=== PATIENT | male | born 1995 | race Caucasian/White ===

== ENCOUNTER 2017-05-05 09:23 | Emergency (ER) | payer SELFPAY ==
[2017-05-05 09:29] VITALS: BP 128/84
== END 2017-05-05 09:34 | disposition left against medical advice (07) ==
LOC: ED 09:28
DX: Z53.21 Procedure and treatment not carried out due to patient leaving prior to being seen by health care provider (principal)

== ENCOUNTER 2017-10-17 10:31 | Emergency (ER) | payer OTHER ==
[~2017-10-17] VITALS: Ht 180.3 cm; Wt 79.2 kg
[2017-10-17] MEDS ORDERED: ALBUTEROL/IPRATROPIUM 2.5MG/0.5MG, 3 ML ONE (11:12)
[2017-10-17 11:30] VITALS: BP 128/84
[2017-10-17] MEDS ORDERED: ALBUTEROL/IPRATROPIUM 2.5MG/0.5MG, 3 ML NPPB ONE (11:30)
== END 2017-10-17 12:10 | disposition home or self-care (01) ==
LOC: ED 11:38
DX: J45.31 Mild persistent asthma with (acute) exacerbation (principal)
CPT/HCPCS: 71046; 93005; 94640; 99284; J7512; J7620

== ENCOUNTER 2018-01-23 23:18 | Emergency (ER) | payer OTHER ==
[~2018-01-23] VITALS: Ht 182.9 cm; Wt 87.4 kg
[2018-01-23 23:24] VITALS: BP 136/87
[2018-01-24] MEDS ORDERED: CLINDAMYCIN 300 MG CAPSULE ONE (00:17)
[2018-01-24] MEDS ORDERED: DEXAMETHASONE 4 MG TABLET ONE (00:17)
[2018-01-24] MEDS ORDERED: CLINDAMYCIN 300 MG CAPSULE PO ONE (00:30)
[2018-01-24] MEDS ORDERED: DEXAMETHASONE 4 MG TABLET PO ONE (00:30)
== END 2018-01-24 00:26 | disposition home or self-care (01) ==
LOC: ED 23:59
DX: K11.21 Acute sialoadenitis (principal); J45.909 Unspecified asthma, uncomplicated
CPT/HCPCS: 99283

== ENCOUNTER 2018-09-22 09:47 | Emergency (ER) | payer SELFPAY ==
[~2018-09-22] VITALS: Ht 182.9 cm; Wt 104.6 kg
--- NOTE | 2018-09-22 10:39 | NUR ---
BIOLOGIST: PT TO ROOM FROM [facility]
--- NOTE | 2018-09-22 10:48 | NUR ---
PATIENT PRESENTS TO ED TODAY FOR SOB, COUGH, CP (WORSE WITH INSPIRATION) X 1 YR, WORSE LAST MONTH, HX OF ASTHMA. PATIENT REPORTS INHALER PRESCRIBED BY CASA LAST YEAR NOT HELPING. NADN, SKIN WARM, PINK, DRY, PROJECT SUPERINTENDENT ON PATIENT, AWAITING MD ORDERS, CALL LIGHT WITHIN REACH.
[2018-09-22] MEDS ORDERED: ALBU0.63 NEB (10:50)
--- NOTE | 2018-09-22 11:02 | NUR ---
RESULTS BACK, CHART UP FOR RECHECK.
--- NOTE | 2018-09-22 11:17 | NUR ---
PATIENT SITTING IN [facility]. VS UPDATED IN CHART. [id number].
--- NOTE | 2018-09-22 11:21 | NUR ---
NEW ORDERS, AWAITING RT.
[2018-09-22] MEDS ORDERED: ALBUTEROL/IPRATROPIUM 2.5MG/0.5MG, 3 ML ONE (11:22)
[2018-09-22] MEDS ORDERED: ALBUTEROL/IPRATROPIUM 2.5MG/0.5MG, 3 ML NPPB ONE (11:30)
--- NOTE | 2018-09-22 11:59 | NUR ---
PATIENT SITTING IN GURNEY, NADN, O2 96% RA. RT COMPLETED BREATHING TREATMENT, AWAITING FURTHER ORDERS. NO ADDITIONAL NEEDS AT THIS TIME. VS UPDATED IN CHART.
[2018-09-22 12:01] VITALS: BP 137/74
--- NOTE | 2018-09-22 12:09 | NUR ---
Patient/Caregiver given discharge instructions and they have confirmed that they understand the instructions. Patient ambulatory with steady gait.
== END 2018-09-22 12:11 | disposition home or self-care (01) ==
LOC: ED 10:51
DX: J45.31 Mild persistent asthma with (acute) exacerbation (principal); F17.200 Nicotine dependence, unspecified, uncomplicated
CPT/HCPCS: 71046; 93005; 94640; 99283; J7620